=== PATIENT | female | born 1995 | race Caucasian/White ===

== ENCOUNTER 2023-02-21 21:27 | Inpatient (IN) | payer OTHER ==
[~2023-02-21] VITALS: Ht 160 cm; Wt 99.2 kg
[2023-02-21] MEDS ORDERED: NS 1,000 ML IV ONE (21:35)
[2023-02-21 21:52] LABS: BASO # 0.1 10^3/uL (0.0-0.2); BASO % 0.6 % (0.0-1.0); EOS # 0.4 10^3/uL (0.0-0.5); EOS % 2.8 % (0.0-3.0); HEMATOCRIT 40.9 % (36.0-47.0); LYMPH # 3.5 10^3/uL (1.5-5.0); LYMPH % 26.1 % (24.0-44.0); MEAN CORPUSCULAR HEMOGLOBIN 29.9 pg (27.0-33.0); MEAN CORPUSCULAR HGB CONC 34.2 g/dl (32.0-36.5); MEAN CORPUSCULAR VOLUME 87.4 fl (80.0-96.0); MONO # 0.9 10^3/uL (0.0-0.8); MONO % 6.5 % (2.0-8.0); NEUTROPHILS # 8.6 10^3/uL (1.5-8.5); NEUTROPHILS % 63.6 % (36.0-66.0); PLATELET COUNT, AUTOMATED 296 10^3/uL (150-450); RED BLOOD COUNT 4.68 10^6/uL (4.00-5.40); WHITE BLOOD COUNT 13.5 10^3/uL (4.0-10.0)
[2023-02-21 22:04] LABS: INR 0.98; PROTHROMBIN TIME 13.2 SECONDS (12.5-14.5)
[2023-02-21 22:05] LABS: PARTIAL THROMBOPLASTIN TIME 24.1 SECONDS (24.8-34.2)
[2023-02-21 22:15] LABS: CK-MB VALUE MASS 2.5 NG/ML (<3.6); ETHYL ALCOHOL (ETHANOL) < 0.003 % (0.000-0.010); LIPASE 30 U/L (12-53)
[2023-02-21 22:17] LABS: ALKALINE PHOSPHATASE 49 U/L (46-116); ALT/SGPT 22 U/L (7.0-40); AMYLASE 29 U/L (30-118); AST/SGOT 12 U/L (<34); BILIRUBIN,DIRECT 0.2 MG/DL (<0.4); BILIRUBIN,TOTAL 0.7 MG/DL (0.3-1.2); BLOOD UREA NITROGEN 8 MG/DL (9-23); CALCIUM LEVEL 8.7 MG/DL (8.5-10.1); CARBON DIOXIDE LEVEL 19 MMOL/L (20-31); CHLORIDE LEVEL 104 MMOL/L (98-107); CPK CREATINE PHOSPHOKINASE 202 U/L (34-145); CREATININE FOR GFR 0.91 MG/DL (0.55-1.30); GLOMERULAR FILTRATION RATE > 60.0 (>60); GLUCOSE, FASTING 104 MG/DL (60-100); MB/CK RELATIVE INDEX 1.23 (< OR =4); POTASSIUM SERUM 3.4 MMOL/L (3.5-5.1); SODIUM LEVEL 141 MMOL/L (136-145); TOTAL PROTEIN 7.1 G/DL (5.7-8.2)
[2023-02-21] MEDS ORDERED: NS IV ONE (22:25)
[2023-02-21 22:26] LABS: HCG, SERUM QUALITATIVE NEGATIVE (NEGATIVE)
[2023-02-22 02:21] LABS: HEMATOCRIT 38.4 % (36.0-47.0); MEAN CORPUSCULAR HEMOGLOBIN 29.9 pg (27.0-33.0); MEAN CORPUSCULAR HGB CONC 33.9 g/dl (32.0-36.5); MEAN CORPUSCULAR VOLUME 88.3 fl (80.0-96.0); PLATELET COUNT, AUTOMATED 259 10^3/uL (150-450); RED BLOOD COUNT 4.35 10^6/uL (4.00-5.40); WHITE BLOOD COUNT 11.7 10^3/uL (4.0-10.0)
[2023-02-22] MEDS ORDERED: MED REC IN PROGRESS XX SCH (10:40)
[2023-02-22 10:50] LABS: ACETAMINOPHEN LEVEL < 2.0 UG/ML (10.0-20.0); SALICYLATE LEVEL < 3.0 MG/DL (<30)
[2023-02-22 10:53] LABS: THYROID STIMULATING HORMONE 2.769 uIU/ML (0.55-4.78)
[2023-02-22] MEDS ORDERED: EPIP0.3I2 IM (11:28)
[2023-02-22] MEDS ORDERED: TEST200I14 IM (11:28)
[2023-02-22] MEDS ORDERED: MECL1TAB31 PO (11:28)
[2023-02-22] MEDS ORDERED: HOME MED LIST COMPLETE! XX SCH (11:30)
[2023-02-22] MEDS ORDERED: NICOTINE 21MG/24HR 1 EA TRANSDERMAL TD ONE (11:55)
[2023-02-22 13:05] LABS: AMPHETAMINES LEVEL URINE NEGATIVE (NEGATIVE); BARBITURATES URINE NEGATIVE (NEGATIVE); BENZODIAZEPINES URINE NEGATIVE (NEGATIVE); COCAINE METABOLITE URINE NEGATIVE (NEGATIVE); METHADONE URINE NEGATIVE (NEGATIVE); OPIATES URINE NEGATIVE (NEGATIVE)
[2023-02-22 13:06] LABS: PHENCYCLIDINE URINE NEGATIVE (NEGATIVE)
[2023-02-22 13:07] LABS: CANNABINOIDS URINE POSITIVE (NEGATIVE)
[2023-02-22 13:14] LABS: APPEARANCE, URINE HAZY (CLEAR); BACTERIA, URINE AUTO NEGATIVE (NEGATIVE); BILIRUBIN, URINE AUTO NEGATIVE (NEGATIVE); BLOOD, URINE BLOOD 2+ (NEGATIVE); COLOR, URINE STRAW (YELLOW); GLUCOSE, URINE (UA) AUTO NEGATIVE (NEGATIVE); KETONE, URINE AUTO TRACE mg/dL (NEGATIVE); LEUKOCYTE ESTERASE, URINE AUTO NEGATIVE (NEGATIVE); MUCUS, URINE SMALL (NEGATIVE); NITRITE, URINE AUTO NEGATIVE (NEGATIVE); PROTEIN, URINE AUTO NEGATIVE (NEGATIVE); RBC, URINE AUTO 1 /HPF (0-3); SPECIFIC GRAVITY URINE AUTO 1.005 (1.002-1.035); SQUAMOUS EPITHELIAL CELL UR AU 5 /HPF (0-6); UROBILINOGEN, URINE AUTO 0.2 mg/dL (0.0-2.0); WBC, URINE AUTO 1 /HPF (0-3)
[2023-02-22] MEDS ORDERED: ONDANSETRON 4MG ORAL DISINTEGRATING TAB PO ONE (18:40)
[2023-02-22] MEDS ORDERED: cloNIDine 0.1MG TABLET PO ONE (18:40)
[2023-02-23] MEDS ORDERED: ACETAMINOPHEN 500 MG TAB PO ONE (08:25)
[2023-02-23] MEDS ORDERED: cloNIDine 0.1MG TABLET PO ONE (08:25)
[2023-02-23] MEDS ORDERED: NICOTINE 21MG/24HR 1 EA TRANSDERMAL TD ONE (08:35)
[2023-02-23] MEDS ORDERED: ONDANSETRON 4MG ORAL DISINTEGRATING TAB PO ONE (09:25)
[2023-02-23] MEDS ORDERED: OMEPRAZOLE 20MG CAP PO ONE (09:25)
[2023-02-23] MEDS ORDERED: LORazepam 1 MG TAB PO STA (14:37)
[2023-02-24] MEDS ORDERED: cloNIDine 0.1MG TABLET PO ONE (08:10)
[2023-02-24] MEDS ORDERED: NICOTINE 21MG/24HR 1 EA TRANSDERMAL TD ONE (10:00)
[2023-02-24] MEDS ORDERED: traZODone 50 MG TAB PO PRN (12:25)
[2023-02-24] MEDS ORDERED: TESTOSTERONE CYPIONATE 200 MG/ML IM SCH (12:25)
[2023-02-24] MEDS ORDERED: MAALOX 30 ML SUSP *UDC PO PRN (12:25)
[2023-02-24] MEDS ORDERED: MOM 30ML SUSPENSION UDC PO PRN (12:25)
[2023-02-24 14:33] VITALS: BP 165/90; TEMP 97.4; O2SAT 97
[2023-02-24] MEDS: diphenhydrAMINE 25MG CAP PO PRN (19:28)
[2023-02-24] MEDS: ACETAMINOPHEN TAB 650MG DOSE (2X325MG) PO PRN (19:30)
[2023-02-24] MEDS ORDERED: RAMELTEON 8 MG TAB (ROZEREM) PO ONE (23:20)
[2023-02-25 06:22] VITALS: BP 127/70; TEMP 97.3; O2SAT 97
[2023-02-25] MEDS: NICOTINE 21MG/24HR 1 EA TRANSDERMAL TD PRN (08:05)
[2023-02-25] MEDS: ACETAMINOPHEN TAB 650MG DOSE (2X325MG) PO PRN ×3 (08:06→21:24)
[2023-02-25 09:20] LABS: BASO # 0.1 10^3/uL (0.0-0.2); BASO % 0.9 % (0.0-1.0); EOS # 0.3 10^3/uL (0.0-0.5); EOS % 3.8 % (0.0-3.0); HEMATOCRIT 40.8 % (36.0-47.0); LYMPH # 2.3 10^3/uL (1.5-5.0); LYMPH % 33.9 % (24.0-44.0); MEAN CORPUSCULAR HEMOGLOBIN 30.1 pg (27.0-33.0); MEAN CORPUSCULAR HGB CONC 34.3 g/dl (32.0-36.5); MEAN CORPUSCULAR VOLUME 87.7 fl (80.0-96.0); MONO # 0.6 10^3/uL (0.0-0.8); MONO % 8.8 % (2.0-8.0); NEUTROPHILS # 3.6 10^3/uL (1.5-8.5); NEUTROPHILS % 52.3 % (36.0-66.0); PLATELET COUNT, AUTOMATED 286 10^3/uL (150-450); RED BLOOD COUNT 4.65 10^6/uL (4.00-5.40); WHITE BLOOD COUNT 6.8 10^3/uL (4.0-10.0)
[2023-02-25 09:39] LABS: ALBUMIN 3.9 G/DL (3.2-5.2); ALKALINE PHOSPHATASE 48 U/L (46-116); ALT/SGPT 19 U/L (7.0-40); AST/SGOT < 8 U/L (<34); BILIRUBIN,TOTAL 0.5 MG/DL (0.3-1.2); BLOOD UREA NITROGEN 10 MG/DL (9-23); CARBON DIOXIDE LEVEL 23 MMOL/L (20-31); CHLORIDE LEVEL 104 MMOL/L (98-107); CREATININE FOR GFR 0.72 MG/DL (0.55-1.30); GLOMERULAR FILTRATION RATE > 60.0 (>60); GLUCOSE, FASTING 108 MG/DL (60-100); MAGNESIUM LEVEL 1.4 MG/DL (1.8-2.4); POTASSIUM SERUM 3.8 MMOL/L (3.5-5.1); SODIUM LEVEL 137 MMOL/L (136-145); TOTAL PROTEIN 6.9 G/DL (5.7-8.2)
[2023-02-25] MEDS ORDERED: PILL CUTTER 1 EACH XX PRN (10:00)
[2023-02-25] MEDS: LIDOCAINE 5% (LIDODERM) PATCH TD SCH (10:10)
[2023-02-25] MEDS: diphenhydrAMINE 25MG CAP PO PRN ×2 (13:52→21:23)
[2023-02-25 17:20] VITALS: BP 156/100; TEMP 97.3; O2SAT 99
[2023-02-25] MEDS: hydrOXYzine 50 MG TAB PO SCH (20:16)
[2023-02-25] MEDS: BREXPIPRAZOLE 2MG TABLET (REXULTI) PO SCH (20:16)
[2023-02-26 06:04] VITALS: BP 146/76; TEMP 98; O2SAT 95
[2023-02-26] MEDS ORDERED: HYDR50TA70 PO (07:25)
[2023-02-26] MEDS ORDERED: CLONI1TA PO (07:25)
[2023-02-26] MEDS ORDERED: REXU1TAB5 PO (07:25)
[2023-02-26] MEDS ORDERED: BRIN1TAB3 PO (07:25)
[2023-02-26] MEDS ORDERED: MED REC COMMENT (07:28)
[2023-02-26] MEDS: MAGNESIUM OXIDE 400MG TAB (MAG-OX) PO SCH ×3 (08:25→20:23)
[2023-02-26] MEDS: LIDOCAINE 5% (LIDODERM) PATCH TD SCH (08:26)
[2023-02-26] MEDS: NICOTINE 21MG/24HR 1 EA TRANSDERMAL TD PRN (08:26)
[2023-02-26] MEDS ORDERED: TRINTELLIX 20 MG PO SCH (09:00)
[2023-02-26] MEDS: ESCITALOPRAM OXALATE 5MG TABLET (LEXAPRO) PO SCH (11:18)
[2023-02-26] MEDS: diphenhydrAMINE 25MG CAP PO PRN (16:05)
[2023-02-26] MEDS: ACETAMINOPHEN TAB 650MG DOSE (2X325MG) PO PRN ×2 (16:06→23:11)
[2023-02-26 16:16] VITALS: BP 142/90; TEMP 97.5; O2SAT 95
[2023-02-26] MEDS: BREXPIPRAZOLE 2MG TABLET (REXULTI) PO SCH (20:23)
[2023-02-26] MEDS: hydrOXYzine 50 MG TAB PO SCH (20:23)
[2023-02-27 06:30] VITALS: BP 137/80; TEMP 97.3; O2SAT 97
[2023-02-27] MEDS: ESCITALOPRAM OXALATE 5MG TABLET (LEXAPRO) PO SCH (09:56)
[2023-02-27] MEDS: MAGNESIUM OXIDE 400MG TAB (MAG-OX) PO SCH ×3 (09:56→21:08)
[2023-02-27] MEDS: LIDOCAINE 5% (LIDODERM) PATCH TD SCH (09:57)
[2023-02-27] MEDS: ACETAMINOPHEN TAB 650MG DOSE (2X325MG) PO PRN ×2 (09:58→23:56)
[2023-02-27] MEDS: NICOTINE 21MG/24HR 1 EA TRANSDERMAL TD PRN (10:04)
[2023-02-27] MEDS: GABAPENTIN 300 MG CAP PO SCH ×2 (12:36→21:08)
[2023-02-27] MEDS: diazePAM 2 MG TAB PO PRN (12:37)
[2023-02-27 16:06] VITALS: BP 158/92; TEMP 97.8; O2SAT 96
[2023-02-27] MEDS: hydrOXYzine 50 MG TAB PO SCH (21:07)
[2023-02-27] MEDS: RAMELTEON 8 MG TAB (ROZEREM) PO SCH (21:07)
[2023-02-27] MEDS: BREXPIPRAZOLE 2MG TABLET (REXULTI) PO SCH (21:07)
[2023-02-27] MEDS: PRAZOSIN 1 MG CAP PO SCH (21:09)
[2023-02-28 06:27] VITALS: BP 117/71; TEMP 97.7; O2SAT 97
[2023-02-28] MEDS: MAGNESIUM OXIDE 400MG TAB (MAG-OX) PO SCH ×3 (08:30→21:20)
[2023-02-28] MEDS: ESCITALOPRAM OXALATE 5MG TABLET (LEXAPRO) PO SCH (08:30)
[2023-02-28] MEDS: LIDOCAINE 5% (LIDODERM) PATCH TD SCH (08:31)
[2023-02-28] MEDS: GABAPENTIN 300 MG CAP PO SCH ×2 (08:31→21:20)
[2023-02-28] MEDS: diazePAM 2 MG TAB PO PRN (13:12)
[2023-02-28] MEDS: ACETAMINOPHEN TAB 650MG DOSE (2X325MG) PO PRN (13:13)
[2023-02-28 16:06] VITALS: BP 131/80; TEMP 97.1; O2SAT 98
[2023-02-28] MEDS: BREXPIPRAZOLE 2MG TABLET (REXULTI) PO SCH (21:19)
[2023-02-28] MEDS: RAMELTEON 8 MG TAB (ROZEREM) PO SCH (21:19)
[2023-02-28] MEDS: hydrOXYzine 50 MG TAB PO SCH (21:19)
[2023-02-28 21:20] VITALS: BP 141/89
[2023-02-28] MEDS: PRAZOSIN 1 MG CAP PO SCH (21:20)
[2023-03-01 06:09] VITALS: BP 123/60; TEMP 98.9; O2SAT 96
[2023-03-01] MEDS ORDERED: HYDR50TA70 PO (10:04)
[2023-03-01] MEDS ORDERED: LIDO5TD TD (10:04)
[2023-03-01] MEDS ORDERED: MINI1CAP PO (10:04)
[2023-03-01] MEDS: ESCITALOPRAM OXALATE 5MG TABLET (LEXAPRO) PO SCH (10:04)
[2023-03-01] MEDS ORDERED: LEXA5TAB13 PO (10:04)
[2023-03-01] MEDS ORDERED: RAME8TAB2 PO (10:04)
[2023-03-01] MEDS ORDERED: NICO21PAT TD (10:04)
[2023-03-01] MEDS ORDERED: GABA-282 PO (10:04)
[2023-03-01] MEDS ORDERED: MAGN400T2 PO (10:04)
[2023-03-01] MEDS ORDERED: REXU1TAB5 PO (10:04)
[2023-03-01] MEDS: MAGNESIUM OXIDE 400MG TAB (MAG-OX) PO SCH (10:05)
[2023-03-01] MEDS: NICOTINE 21MG/24HR 1 EA TRANSDERMAL TD PRN (10:05)
[2023-03-01] MEDS: GABAPENTIN 300 MG CAP PO SCH (10:05)
[2023-03-01] MEDS: LIDOCAINE 5% (LIDODERM) PATCH TD SCH (10:06)
[2023-03-01] MEDS: diphenhydrAMINE 25MG CAP PO PRN (11:08)
[2023-03-01] MEDS: ACETAMINOPHEN TAB 650MG DOSE (2X325MG) PO PRN (11:09)
[2023-03-01] MEDS: diazePAM 2 MG TAB PO PRN (13:44)
[2023-03-01 13:50] VITALS: BP 142/94; TEMP 98; O2SAT 97
== END 2023-03-01 15:56 | disposition home or self-care (01) | DRG 753 ==
LOC: EDBD 21:27 → M ED 21:27 → M ED INP 02-24 12:25 → M PSY 02-24 14:32
PROVIDERS: ADMIT Student in an Organized Health Care Education/Training Program; ATTEND Student in an Organized Health Care Education/Training Program
DX: F31.9 Bipolar disorder, unspecified (principal); E11.10 Type 2 diabetes mellitus with ketoacidosis without coma; E83.42 Hypomagnesemia; F43.10 Post-traumatic stress disorder, unspecified; F60.3 Borderline personality disorder; F17.210 Nicotine dependence, cigarettes, uncomplicated; F12.10 Cannabis abuse, uncomplicated; E73.9 Lactose intolerance, unspecified; J45.909 Unspecified asthma, uncomplicated; E03.9 Hypothyroidism, unspecified; G89.29 Other chronic pain; M25.511 Pain in right shoulder; F64.0 Transsexualism; Z59.02 Unsheltered homelessness; Z56.0 Unemployment, unspecified; Z91.410 Personal history of adult physical and sexual abuse; Z62.810 Personal history of physical and sexual abuse in childhood; Z88.6 Allergy status to analgesic agent; Z79.899 Other long term (current) drug therapy; Z88.8 Allergy status to other drugs, medicaments and biological substances; Z91.030 Bee allergy status

== ENCOUNTER → 2024-01-19 | Outpatient (CLI) | payer OTHER ==
[~2024-01-19] MED LIST: BRIN1TAB3 PO; CLONI1TA PO; EPIP0.3I2 IM; GABA-282 PO; HYDR50TA70 PO; LEXA5TAB13 PO; LIDO5TD TD; MAGN400T2 PO; MECL-209 PO; MED REC COMMENT; MINI1CAP PO; NICO21PAT TD; RAME8TAB2 PO; REXU1TAB5 PO; TEST200I14 IM
[2024-01-19 17:29] LABS: HEMATOCRIT 43.2 % (36.0-47.0); HEMOGLOBIN 14.8 g/dl (12.0-15.5); MEAN CORPUSCULAR HEMOGLOBIN 30.9 pg (27.0-33.0); MEAN CORPUSCULAR HGB CONC 34.3 g/dl (32.0-36.5); MEAN CORPUSCULAR VOLUME 90.2 fl (80.0-96.0); PLATELET COUNT, AUTOMATED 280 10^3/uL (150-450); RED BLOOD COUNT 4.79 10^6/uL (4.00-5.40); WHITE BLOOD COUNT 9.4 10^3/uL (4.0-10.0)
[2024-01-19 17:48] LABS: HEMOGLOBIN A1c 5.1 % (4.0-6.0)
[2024-01-19 17:57] LABS: ALBUMIN 4.1 G/DL (3.2-5.2); ALKALINE PHOSPHATASE 51 U/L (46-116); ALT/SGPT 30 U/L (7.0-40); AST/SGOT 14 U/L (<34); BILIRUBIN,TOTAL 0.4 MG/DL (0.3-1.2); BLOOD UREA NITROGEN 10 MG/DL (9-23); CARBON DIOXIDE LEVEL 24 MMOL/L (20-31); CHLORIDE LEVEL 106 MMOL/L (98-107); CREATININE FOR GFR 0.82 MG/DL (0.55-1.30); GLOMERULAR FILTRATION RATE > 60.0 (>60); GLUCOSE, FASTING 99 MG/DL (60-100); POTASSIUM SERUM 4.1 MMOL/L (3.5-5.1); SODIUM LEVEL 135 MMOL/L (136-145); THYROID STIMULATING HORMONE 1.469 uIU/ML (0.55-4.78)
[2024-01-19 17:58] LABS: VITAMIN B12 LEVEL 388 PG/ML (211-911)
[2024-01-19 18:07] LABS: MAU/CREAT RATIO 2.6 MCG/MG (0.0-30.0)
== END ==
LOC: M PLALAB 14:31
PROVIDERS: ATTEND Family Medicine
DX: E11.9 Type 2 diabetes mellitus without complications (principal); E03.9 Hypothyroidism, unspecified; R53.83 Other fatigue; N94.6 Dysmenorrhea, unspecified

== ENCOUNTER → 2024-04-14 | Outpatient (CLI) | payer OTHER | LOC: M WHC 11:16 | PROVIDERS: ATTEND Family Medicine | DX: R10.2 Pelvic and perineal pain (principal) ==

== ENCOUNTER → 2024-05-23 | Outpatient (CLI) | payer OTHER ==
[~2024-05-23] MED LIST changes: +GABA-1172 PO; -GABA-282 PO
[2024-05-23 13:30] LABS: FREE T4 0.92 NG/DL (0.89-1.76); THYROID STIMULATING HORMONE 1.24 uIU/ML (0.55-4.78)
== END ==
LOC: M PLALAB 11:34
PROVIDERS: ATTEND Family Medicine
DX: E11.9 Type 2 diabetes mellitus without complications (principal); E03.9 Hypothyroidism, unspecified

== ENCOUNTER 2024-06-17 22:39 | Emergency (ER) | payer OTHER ==
[~2024-06-17] VITALS: Ht 160 cm; Wt 107.0 kg
[2024-06-17] MEDS ORDERED: OMEP10CASR PO (22:57)
[2024-06-17] MEDS ORDERED: ADV100INH INH (22:57)
[2024-06-17] MEDS ORDERED: CETI-24 PO (22:57)
[2024-06-17] MEDS ORDERED: CLON0.5T2 PO (22:57)
[2024-06-17] MEDS ORDERED: AMPH1CAP16 PO (22:57)
[2024-06-17 23:03] VITALS: TEMP 97.4
[2024-06-17 23:22] LABS: BASO # 0.1 10^3/uL (0.0-0.2); BASO % 0.8 % (0.0-1.0); EOS # 0.3 10^3/uL (0.0-0.5); EOS % 2.7 % (0.0-3.0); HEMATOCRIT 47.9 % (36.0-47.0); HEMOGLOBIN 16.8 g/dl (12.0-15.5); LYMPH # 3.2 10^3/uL (1.5-5.0); LYMPH % 28.2 % (24.0-44.0); MEAN CORPUSCULAR HGB CONC 35.1 g/dl (32.0-36.5); MEAN CORPUSCULAR VOLUME 88.4 fl (80.0-96.0); NEUTROPHILS # 6.6 10^3/uL (1.5-8.5); NEUTROPHILS % 58.9 % (36.0-66.0); PLATELET COUNT, AUTOMATED 299 10^3/uL (150-450); RED BLOOD COUNT 5.42 10^6/uL (4.00-5.40); WHITE BLOOD COUNT 11.2 10^3/uL (4.0-10.0)
[2024-06-17 23:54] LABS: BLOOD UREA NITROGEN 11 MG/DL (9-23); CALCIUM LEVEL 9.7 MG/DL (8.5-10.1); CARBON DIOXIDE LEVEL 26 MMOL/L (20-31); CHLORIDE LEVEL 102 MMOL/L (98-107); CK-MB VALUE MASS 2.8 NG/ML (<3.6); CREATININE FOR GFR 0.97 MG/DL (0.55-1.30); GLOMERULAR FILTRATION RATE > 60.0 (>60); GLUCOSE, FASTING 102 MG/DL (60-100); POTASSIUM SERUM 4.3 MMOL/L (3.5-5.1); SODIUM LEVEL 136 MMOL/L (136-145)
[2024-06-17 23:56] LABS: THYROID STIMULATING HORMONE 1.384 uIU/ML (0.55-4.78)
[2024-06-17 23:58] LABS: CPK CREATINE PHOSPHOKINASE 457 U/L (34-145); MB/CK RELATIVE INDEX 0.61 (< OR =4)
[2024-06-18 00:55] LABS: CK-MB VALUE MASS 2.5 NG/ML (<3.6); MB/CK RELATIVE INDEX 0.57 (< OR =4)
[2024-06-18] MEDS: ONDANSETRON 4MG 2ML VIAL IV ONE (01:00)
[2024-06-18 03:00] VITALS: BP 121/75; O2SAT 95
== END 2024-06-18 03:22 | disposition home or self-care (01) ==
LOC: EDBD 22:39 → M ED 22:39
DX: R56.9 Unspecified convulsions (principal); E73.9 Lactose intolerance, unspecified; F31.9 Bipolar disorder, unspecified; F43.10 Post-traumatic stress disorder, unspecified; F90.9 Attention-deficit hyperactivity disorder, unspecified type; F32.A Depression, unspecified; Z79.890 Hormone replacement therapy; Z88.6 Allergy status to analgesic agent; Z91.030 Bee allergy status
CPT/HCPCS: 70450; 71045; 72125; 80048; 82140; 82550; 82553; 83605; 83735; 84146; 84443; 84484; 85025; 93005; 93041; 94760; 96374; 99285; J2405

== ENCOUNTER 2024-07-26 15:30 | Emergency (ER) | payer OTHER ==
[~2024-07-26] VITALS: Ht 157.5 cm; Wt 105.3 kg
[~2024-07-26 15:30] MED LIST changes: +ADVA1AER8 INH; +AMPH1CAP16 PO; +CETI-24 PO; +CLON0.5T2 PO; +OMEP10CASR PO
[2024-07-26 15:38] VITALS: BP 152/84; TEMP 99.4; O2SAT 97
== END 2024-07-26 19:21 | disposition left against medical advice (07) ==
LOC: M ED 15:30
DX: Z53.21 Procedure and treatment not carried out due to patient leaving prior to being seen by health care provider (principal)

== ENCOUNTER 2024-07-31 20:39 | Emergency (ER) | payer OTHER ==
[~2024-07-31] VITALS: Ht 160 cm; Wt 105.0 kg
[2024-07-31 20:47] VITALS: TEMP 97
[2024-08-01 02:15] VITALS: BP 175/106
[2024-08-01 04:01] VITALS: O2SAT 96
[2024-08-01 04:12] VITALS: BP 140/82
[2024-08-01] MEDS ORDERED: AMLO25TA PO (04:14)
== END 2024-08-01 04:22 | disposition home or self-care (01) ==
LOC: M ED 20:39
DX: I10 Essential (primary) hypertension (principal); K21.9 Gastro-esophageal reflux disease without esophagitis; J45.909 Unspecified asthma, uncomplicated; F90.9 Attention-deficit hyperactivity disorder, unspecified type; F32.A Depression, unspecified; G40.909 Epilepsy, unspecified, not intractable, without status epilepticus; F17.200 Nicotine dependence, unspecified, uncomplicated; Z91.030 Bee allergy status; Z88.6 Allergy status to analgesic agent; Z91.011 Allergy to milk products; Z79.899 Other long term (current) drug therapy

== ENCOUNTER 2024-08-01 13:34 | Emergency (ER) | payer OTHER ==
[~2024-08-01 13:34] MED LIST changes: +AMLO25TA PO
[2024-08-01 15:08] LABS: BASO # 0.1 10^3/uL (0.0-0.2); BASO % 0.8 % (0.0-1.0); EOS # 0.2 10^3/uL (0.0-0.5); HEMATOCRIT 45.5 % (36.0-47.0); HEMOGLOBIN 15.4 g/dl (12.0-15.5); LYMPH # 2.1 10^3/uL (1.5-5.0); MEAN CORPUSCULAR HEMOGLOBIN 30.3 pg (27.0-33.0); MEAN CORPUSCULAR HGB CONC 33.8 g/dl (32.0-36.5); MEAN CORPUSCULAR VOLUME 89.4 fl (80.0-96.0); MONO # 0.5 10^3/uL (0.0-0.8); MONO % 6.5 % (2.0-8.0); NEUTROPHILS # 4.8 10^3/uL (1.5-8.5); NEUTROPHILS % 62.4 % (36.0-66.0); PLATELET COUNT, AUTOMATED 265 10^3/uL (150-450); RED BLOOD COUNT 5.09 10^6/uL (4.00-5.40); WHITE BLOOD COUNT 7.7 10^3/uL (4.0-10.0)
[2024-08-01 15:35] LABS: BLOOD UREA NITROGEN 15 MG/DL (9-23); CALCIUM LEVEL 9.6 MG/DL (8.5-10.1); CARBON DIOXIDE LEVEL 24 MMOL/L (20-31); CHLORIDE LEVEL 103 MMOL/L (98-107); CK-MB VALUE MASS 1.5 NG/ML (<3.6); CREATININE FOR GFR 0.73 MG/DL (0.55-1.30); GLOMERULAR FILTRATION RATE > 60.0 (>60); GLUCOSE, FASTING 148 MG/DL (60-100); MAGNESIUM LEVEL 1.7 MG/DL (1.8-2.4); POTASSIUM SERUM 4.1 MMOL/L (3.5-5.1); SODIUM LEVEL 137 MMOL/L (136-145)
[2024-08-01 15:42] LABS: CPK CREATINE PHOSPHOKINASE 305 U/L (34-145); HCG, SERUM QUALITATIVE NEGATIVE (NEGATIVE); MB/CK RELATIVE INDEX 0.49 (< OR =4)
[2024-08-01] MEDS ORDERED: ISOVUE-370 76% 100ML VIAL As Ordered ONE (16:13)
[2024-08-01 16:16] VITALS: BP 152/91
[2024-08-01] MEDS: amLODIPine 5 MG TAB PO ONE (16:16)
[2024-08-01 17:00] VITALS: BP 146/98; O2SAT 97
[2024-08-01 17:15] VITALS: TEMP 98.1
== END 2024-08-01 17:18 | disposition home or self-care (01) ==
LOC: EDSEX 13:34 → M ED 13:34 → EDBD 13:34 → M ED 17:18
DX: I10 Essential (primary) hypertension (principal); R55 Syncope and collapse; E11.9 Type 2 diabetes mellitus without complications; G40.909 Epilepsy, unspecified, not intractable, without status epilepticus; K21.9 Gastro-esophageal reflux disease without esophagitis; J45.909 Unspecified asthma, uncomplicated; E03.9 Hypothyroidism, unspecified; F31.9 Bipolar disorder, unspecified; N40.0 Benign prostatic hyperplasia without lower urinary tract symptoms; F43.10 Post-traumatic stress disorder, unspecified; E73.9 Lactose intolerance, unspecified; F90.9 Attention-deficit hyperactivity disorder, unspecified type; Z79.899 Other long term (current) drug therapy; Z79.890 Hormone replacement therapy; Z91.030 Bee allergy status; Z88.6 Allergy status to analgesic agent
CPT/HCPCS: 71275; 80048; 82550; 82553; 83735; 84484; 84703; 85025; 93005; 99284; Q9967

== ENCOUNTER 2024-11-06 20:34 | Emergency (ER) | payer OTHER ==
[~2024-11-06] VITALS: Ht 154.9 cm; Wt 111.4 kg
[2024-11-07] MEDS: IPRATROPIUM 0.5MG/ALBUTEROL 2.5MG INH SOL UD 3ML NEB ONE (01:30)
[2024-11-07] MEDS: ACETAMINOPHEN 500 MG TAB PO ONE (01:46)
[2024-11-07] MEDS ORDERED: BENZ200C70 PO (01:51)
[2024-11-07 02:07] VITALS: BP 118/63; TEMP 97.6; O2SAT 98
== END 2024-11-07 02:35 | disposition home or self-care (01) ==
LOC: M ED 20:34
DX: J09.X2 Influenza due to identified novel influenza A virus with other respiratory manifestations (principal); J45.909 Unspecified asthma, uncomplicated; I10 Essential (primary) hypertension; F17.290 Nicotine dependence, other tobacco product, uncomplicated; Z88.6 Allergy status to analgesic agent; Z88.8 Allergy status to other drugs, medicaments and biological substances; Z79.899 Other long term (current) drug therapy

== ENCOUNTER → 2024-11-15 | Outpatient (REF) ==
[~2024-11-15] MED LIST changes: +BENZ200C70 PO
== END ==
LOC: M PLAIMG 14:22
PROVIDERS: ATTEND Internal Medicine
DX: M54.50 Low back pain, unspecified (principal)

== ENCOUNTER 2025-02-10 18:35 | Emergency (ER) | payer OTHER ==
[~2025-02-10] VITALS: Ht 160 cm; Wt 102.6 kg
[2025-02-10 18:39] VITALS: BP 117/74; TEMP 98.3; O2SAT 97
== END 2025-02-10 19:52 | disposition left against medical advice (07) ==
LOC: M ED 18:35
DX: Z53.21 Procedure and treatment not carried out due to patient leaving prior to being seen by health care provider (principal)

== ENCOUNTER 2025-03-06 20:52 | Emergency (ER) | payer OTHER ==
[~2025-03-06] VITALS: Ht 160 cm; Wt 98.6 kg
[2025-03-06 22:37] LABS: BASO # 0.1 10^3/uL (0.0-0.2); BASO % 0.7 % (0.0-1.0); EOS # 0.1 10^3/uL (0.0-0.5); EOS % 0.8 % (0.0-3.0); LYMPH # 3.1 10^3/uL (1.5-5.0); LYMPH % 28.0 % (24.0-44.0); MONO # 0.9 10^3/uL (0.0-0.8); MONO % 8.4 % (2.0-8.0); NEUTROPHILS # 6.9 10^3/uL (1.5-8.5); NEUTROPHILS % 61.7 % (36.0-66.0); PLATELET COUNT, AUTOMATED 308 10^3/uL (150-450)
[2025-03-06 22:52] LABS: ALT/SGPT 31.0 U/L (7.0-40); AST/SGOT 24.0 U/L (<34); CALCIUM LEVEL 9.5 MG/DL (8.5-10.1); CARBON DIOXIDE LEVEL 24.0 MMOL/L (20-31); CHLORIDE LEVEL 101.0 MMOL/L (98-107); CREATININE FOR GFR 1.0 MG/DL (0.55-1.30); GLOMERULAR FILTRATION RATE 77.2 (>60); POTASSIUM SERUM 3.5 MMOL/L (3.5-5.1); SODIUM LEVEL 137.0 MMOL/L (136-145)
[2025-03-07 01:15] LABS: KETONE, URINE AUTO RFX NEGATIVE (NEGATIVE); LEUKOCYTE ESTERASE UR AUTO RFX NEGATIVE (NEGATIVE); MUCUS, URINE RFX SMALL (NEGATIVE); NITRITE, URINE AUTO RFX NEGATIVE (NEGATIVE); RBC, URINE AUTO RFX 0 /HPF (0-3); SQUAM EPITHELIAL CELL UR AURFX 2 /HPF (0-6); WBC, URINE AUTO RFX 2 /HPF (0-3)
[2025-03-07 03:08] LABS: CPK CREATINE PHOSPHOKINASE 194.0 U/L (34-145)
[2025-03-07 04:59] LABS: CK-MB VALUE MASS 3.0 NG/ML (<3.6); MAGNESIUM LEVEL 1.6 MG/DL (1.8-2.4)
[2025-03-07 05:01] LABS: CPK CREATINE PHOSPHOKINASE 174 U/L (34-145); MB/CK RELATIVE INDEX 1.72 (< OR =4)
[2025-03-07 08:16] VITALS: BP 144/99; TEMP 97; O2SAT 98
== END 2025-03-07 08:17 | disposition home or self-care (01) ==
LOC: M ED 20:52
DX: R42 Dizziness and giddiness (principal); E11.9 Type 2 diabetes mellitus without complications; K21.9 Gastro-esophageal reflux disease without esophagitis; J45.909 Unspecified asthma, uncomplicated; R56.9 Unspecified convulsions; Z79.899 Other long term (current) drug therapy; Z79.890 Hormone replacement therapy; Z88.6 Allergy status to analgesic agent; Z88.8 Allergy status to other drugs, medicaments and biological substances; Z91.030 Bee allergy status

== ENCOUNTER → 2025-04-20 | Outpatient (CLI) | payer OTHER | LOC: M PLALAB 12:29 | PROVIDERS: ATTEND Family Medicine | DX: M25.512 Pain in left shoulder (principal); M25.561 Pain in right knee ==

== ENCOUNTER 2025-05-08 11:13 | Inpatient (IN) | payer OTHER ==
[2025-05-07] MEDS: TESTOSTERONE CYPIONATE 200 MG/ML IM SCH (09:00)
[~2025-05-08] VITALS: Ht 157.5 cm; Wt 98.7 kg
[2025-05-08 12:04] LABS: PLATELET COUNT, AUTOMATED 298 10^3/uL (150-450)
[2025-05-08 12:27] LABS: BARBITURATES URINE NEGATIVE (NEGATIVE); BENZODIAZEPINES URINE NEGATIVE (NEGATIVE); COCAINE METABOLITE URINE NEGATIVE (NEGATIVE); METHADONE URINE NEGATIVE (NEGATIVE); OPIATES URINE NEGATIVE (NEGATIVE); PHENCYCLIDINE URINE NEGATIVE (NEGATIVE)
[2025-05-08 12:28] LABS: AMPHETAMINES LEVEL URINE POSITIVE (NEGATIVE); CANNABINOIDS URINE POSITIVE (NEGATIVE)
[2025-05-08 12:29] LABS: ETHYL ALCOHOL (ETHANOL) < 0.003 % (0.000-0.010)
[2025-05-08 12:31] LABS: ALT/SGPT 22 U/L (7.0-40); AST/SGOT 23 U/L (<34); CALCIUM LEVEL 9.0 MG/DL (8.5-10.1); CARBON DIOXIDE LEVEL 24 MMOL/L (20-31); CHLORIDE LEVEL 104 MMOL/L (98-107); CREATININE FOR GFR 0.99 MG/DL (0.55-1.30); GLOMERULAR FILTRATION RATE 78.2 (>60); POTASSIUM SERUM 4.1 MMOL/L (3.5-5.1); SALICYLATE LEVEL < 3.0 MG/DL (<30); SODIUM LEVEL 138 MMOL/L (136-145)
[2025-05-08 12:59] LABS: HCG, SERUM QUALITATIVE NEGATIVE (NEGATIVE)
[2025-05-08] MEDS ORDERED: VILO100C PO (13:31)
[2025-05-08] MEDS ORDERED: REXU1TAB6 PO (13:31)
[2025-05-08] MEDS ORDERED: GUAN1TAB16 PO (13:31)
[2025-05-08] MEDS ORDERED: LEXA1TAB2 PO (13:31)
[2025-05-08] MEDS ORDERED: DICL100G10 TOP (14:32)
[2025-05-08] MEDS ORDERED: AMLO2.5T3 PO (14:32)
[2025-05-08] MEDS ORDERED: HOME MED LIST COMPLETE! XX SCH (14:35)
[2025-05-08] MEDS ORDERED: MAALOX 30 ML SUSP *UDC PO PRN (14:50)
[2025-05-08] MEDS: clonazePAM 0.5 MG TAB PO PRN (17:17)
[2025-05-08] MEDS: NICOTINE 14 MG/24 HR TRANSDERMAL TD SCH (17:20)
[2025-05-08] MEDS: HALOPERIDOL 5 MG TAB PO PRN (20:29)
[2025-05-08] MEDS: ACETAMINOPHEN 325 MG TAB PO PRN (20:30)
[2025-05-08] MEDS: LORazepam 1 MG TAB PO PRN (23:26)
[2025-05-09] MEDS: DICLOFENAC EPOLAMINE 1.3% PATCH TOP SCH (09:00)
[2025-05-09 09:16] VITALS: BP 132/90
[2025-05-09] MEDS: ESCITALOPRAM OXALATE 10 MG TABLET PO SCH (09:19)
[2025-05-09] MEDS: NICOTINE 21 MG/24 HR 1 EA TRANSDERMAL TD SCH (10:34)
[2025-05-09] MEDS ORDERED: LORazepam 0.5 MG TAB PO PRN (13:30)
[2025-05-09 15:52] VITALS: BP 127/83; TEMP 97.3; O2SAT 98
[2025-05-09] MEDS: LIDOCAINE 5% OINT 30 GM TUBE TOP SCH (17:00)
[2025-05-09] MEDS: LURASIDONE HCL 20 MG TAB PO SCH (18:09)
[2025-05-10 06:43] VITALS: BP 142/83; TEMP 97.8; O2SAT 98
[2025-05-10] MEDS: DEXTROAMPHETAMINE/AMPHETAMINE 5 MG *ER* CAPSULE PO SCH (08:14)
[2025-05-10 10:06] VITALS: BP 150/98; TEMP 97.5; O2SAT 91
[2025-05-10] MEDS: OLANZapine 5 MG TAB PO PRN (13:26)
[2025-05-10 13:45] VITALS: BP 148/80
[2025-05-10] MEDS: clonazePAM 0.5 MG TAB PO PRN (15:33)
[2025-05-10 16:14] VITALS: BP 148/86; TEMP 97.1; O2SAT 98
[2025-05-10] MEDS: MOM 30 ML SUSPENSION UDC PO PRN (20:10)
[2025-05-10] MEDS: CALAMINE LOTION 177 ML BTL TOP PRN (21:50)
[2025-05-10] MEDS: traZODone 50 MG TAB PO PRN (21:50)
[2025-05-11 06:37] VITALS: BP 154/82; TEMP 97.6; O2SAT 98
[2025-05-11 14:29] VITALS: BP 141/86; TEMP 97.4; O2SAT 99
[2025-05-12 06:20] VITALS: BP 148/90; TEMP 98.1; O2SAT 96
[2025-05-12 14:59] VITALS: BP 143/94; TEMP 97.5; O2SAT 96
[2025-05-13 06:34] VITALS: BP 127/82; TEMP 97.1; O2SAT 98
[2025-05-13 14:44] VITALS: BP 134/80; TEMP 97.7; O2SAT 96
[2025-05-14] MEDS ORDERED: TRAZ-252 PO (01:13)
[2025-05-14] MEDS ORDERED: LATU20TA PO (01:13)
[2025-05-14 06:53] VITALS: BP 124/96; TEMP 97.1; O2SAT 96
[2025-05-14 08:21] VITALS: BP 141/83
[2025-05-14 08:22] VITALS: BP 141/83
== END 2025-05-14 12:09 | disposition home or self-care (01) | DRG 753 ==
LOC: M ED 11:13 → M ED INP 14:49 → M PSY 16:00
PROVIDERS: ADMIT Internal Medicine; ATTEND Internal Medicine
DX: F31.32 Bipolar disorder, current episode depressed, moderate (principal); F41.1 Generalized anxiety disorder; F41.0 Panic disorder [episodic paroxysmal anxiety]; F60.3 Borderline personality disorder; F43.10 Post-traumatic stress disorder, unspecified; F90.9 Attention-deficit hyperactivity disorder, unspecified type; F12.20 Cannabis dependence, uncomplicated; R45.851 Suicidal ideations; G47.00 Insomnia, unspecified; F64.0 Transsexualism; F17.200 Nicotine dependence, unspecified, uncomplicated; Z91.51 Personal history of suicidal behavior; M25.561 Pain in right knee; M25.512 Pain in left shoulder; E66.812 Obesity, class 2; Z62.810 Personal history of physical and sexual abuse in childhood; Z79.890 Hormone replacement therapy; Z79.899 Other long term (current) drug therapy; Z91.030 Bee allergy status; Z91.0110 Allergy to milk products, unspecified; Z88.6 Allergy status to analgesic agent; Z88.8 Allergy status to other drugs, medicaments and biological substances; Z56.0 Unemployment, unspecified

== ENCOUNTER 2025-06-15 22:43 | Emergency (ER) | payer OTHER ==
[~2025-06-15] VITALS: Ht 157.5 cm; Wt 101.3 kg
[~2025-06-15 22:43] MED LIST changes: +AMLO2.5T3 PO; +DICL100G10 TOP; +GUAN1TAB16 PO; +LATU20TA PO; +LEXA1TAB2 PO; +REXU1TAB6 PO; +TRAZ-252 PO; +VILO100C PO
[2025-06-15 22:46] VITALS: TEMP 98.2
[2025-06-16 00:16] LABS: BASO # 0.1 10^3/uL (0.0-0.2); BASO % 0.8 % (0.0-1.0); EOS # 0.8 10^3/uL (0.0-0.5); EOS % 8.4 % (0.0-3.0); LYMPH # 3.4 10^3/uL (1.5-5.0); LYMPH % 36.8 % (24.0-44.0); MONO # 0.6 10^3/uL (0.0-0.8); MONO % 6.8 % (2.0-8.0); NEUTROPHILS # 4.3 10^3/uL (1.5-8.5); NEUTROPHILS % 47.0 % (36.0-66.0); PLATELET COUNT, AUTOMATED 228 10^3/uL (150-450)
[2025-06-16 00:47] LABS: HCG, SERUM QUALITATIVE NEGATIVE (NEGATIVE)
[2025-06-16 01:05] VITALS: BP 129/86; O2SAT 98
[2025-06-16 01:13] LABS: APPEARANCE, URINE CLEAR (CLEAR); BACTERIA, URINE AUTO NEGATIVE (NEGATIVE); BILIRUBIN, URINE AUTO NEGATIVE (NEGATIVE); BLOOD, URINE BLOOD NEGATIVE (NEGATIVE); GLUCOSE, URINE (UA) AUTO NEGATIVE (NEGATIVE); KETONE, URINE AUTO NEGATIVE (NEGATIVE); LEUKOCYTE ESTERASE, URINE AUTO NEGATIVE (NEGATIVE); MUCUS, URINE SMALL (NEGATIVE); NITRITE, URINE AUTO NEGATIVE (NEGATIVE); PROTEIN, URINE AUTO NEGATIVE (NEGATIVE); RBC, URINE AUTO 0 /HPF (0-3); SPECIFIC GRAVITY URINE AUTO 1.015 (1.002-1.035); SQUAMOUS EPITHELIAL CELL UR AU 1 /HPF (0-6); UROBILINOGEN, URINE AUTO 0.2 mg/dL (0.0-2.0); WBC, URINE AUTO 1 /HPF (0-3)
== END 2025-06-16 04:00 | disposition left against medical advice (07) ==
LOC: M ED 22:43
DX: Z53.21 Procedure and treatment not carried out due to patient leaving prior to being seen by health care provider (principal)

== ENCOUNTER 2025-06-20 17:35 | Emergency (ER) | payer OTHER ==
[~2025-06-20] VITALS: Ht 160 cm; Wt 104.3 kg
[2025-06-20 17:42] VITALS: TEMP 96.6
[2025-06-20 18:47] VITALS: BP_DIAS 87
[2025-06-20] MEDS: ACETAMINOPHEN *IV* 1,000 MG in IV 1 EA IV ONE (20:12)
[2025-06-20] MEDS: KETOROLAC 30 MG/ML 1 ML VIAL IV ONE (20:13)
[2025-06-20 20:45] VITALS: BP_SYST 124; O2SAT 99
== END 2025-06-20 20:45 | disposition home or self-care (01) ==
LOC: EDSEX → EDBD 17:35 → M ED 17:35
DX: Z04.3 Encounter for examination and observation following other accident (principal); V03.10XA Pedestrian on foot injured in collision with car, pick-up truck or van in traffic accident, initial encounter; Y92.410 Unspecified street and highway as the place of occurrence of the external cause; Y93.89 Activity, other specified; Y99.9 Unspecified external cause status; E11.9 Type 2 diabetes mellitus without complications; J45.909 Unspecified asthma, uncomplicated; K21.9 Gastro-esophageal reflux disease without esophagitis; F31.9 Bipolar disorder, unspecified; F60.9 Personality disorder, unspecified; F42.9 Obsessive-compulsive disorder, unspecified; F17.200 Nicotine dependence, unspecified, uncomplicated; F64.0 Transsexualism; Z79.890 Hormone replacement therapy; Z79.899 Other long term (current) drug therapy; Z88.6 Allergy status to analgesic agent; Z91.030 Bee allergy status

== ENCOUNTER 2025-06-20 23:03 | Emergency (ER) | payer OTHER ==
[~2025-06-20] VITALS: Ht 160 cm; Wt 100.2 kg
[2025-06-20 23:11] VITALS: TEMP 98.1
[2025-06-21] MEDS: ONDANSETRON 4MG/2ML VIAL IV ONE (00:15)
[2025-06-21 00:30] LABS: KETONE, URINE AUTO RFX NEGATIVE (NEGATIVE); LEUKOCYTE ESTERASE UR AUTO RFX NEGATIVE (NEGATIVE); MUCUS, URINE RFX SMALL (NEGATIVE); NITRITE, URINE AUTO RFX NEGATIVE (NEGATIVE); RBC, URINE AUTO RFX 4 /HPF (0-3); SQUAM EPITHELIAL CELL UR AURFX 17 /HPF (0-6); WBC, URINE AUTO RFX 9 /HPF (0-3)
[2025-06-21 00:32] LABS: BASO # 0.1 10^3/uL (0.0-0.2); BASO % 0.8 % (0.0-1.0); EOS # 0.3 10^3/uL (0.0-0.5); EOS % 3.0 % (0.0-3.0); LYMPH # 3.0 10^3/uL (1.5-5.0); LYMPH % 33.3 % (24.0-44.0); MONO # 0.7 10^3/uL (0.0-0.8); MONO % 8.2 % (2.0-8.0); NEUTROPHILS # 4.9 10^3/uL (1.5-8.5); NEUTROPHILS % 54.6 % (36.0-66.0); PLATELET COUNT, AUTOMATED 248 10^3/uL (150-450)
[2025-06-21 00:39] LABS: ALT/SGPT 31 U/L (7.0-40); AST/SGOT 41 U/L (<34); CALCIUM LEVEL 8.4 MG/DL (8.5-10.1); CARBON DIOXIDE LEVEL 22 MMOL/L (20-31); CHLORIDE LEVEL 106 MMOL/L (98-107); CREATININE FOR GFR 0.97 MG/DL (0.70-1.30); GLOMERULAR FILTRATION RATE > 90.0 (>60); POTASSIUM SERUM 4.3 MMOL/L (3.5-5.1); SODIUM LEVEL 139 MMOL/L (136-145)
[2025-06-21] MEDS ORDERED: ISOVUE-370 76% 100 ML VIAL As Ordered ONE (01:22)
[2025-06-21 04:30] VITALS: BP 131/72
[2025-06-21 04:45] VITALS: O2SAT 96
== END 2025-06-21 04:57 | disposition home or self-care (01) ==
LOC: EDSEX → M ED 23:03
DX: R10.9 Unspecified abdominal pain (principal); Z04.3 Encounter for examination and observation following other accident; V03.10XA Pedestrian on foot injured in collision with car, pick-up truck or van in traffic accident, initial encounter; Y92.410 Unspecified street and highway as the place of occurrence of the external cause; Y93.89 Activity, other specified; Y99.9 Unspecified external cause status; E11.9 Type 2 diabetes mellitus without complications; J45.909 Unspecified asthma, uncomplicated; K21.9 Gastro-esophageal reflux disease without esophagitis; F31.9 Bipolar disorder, unspecified; F60.9 Personality disorder, unspecified; F42.9 Obsessive-compulsive disorder, unspecified; F17.200 Nicotine dependence, unspecified, uncomplicated; F64.0 Transsexualism; Z79.890 Hormone replacement therapy; Z79.899 Other long term (current) drug therapy; Z88.6 Allergy status to analgesic agent; Z91.030 Bee allergy status
CPT/HCPCS: 70450; 71260; 72125; 74177; 80048; 80076; 81001; 83690; 85025; 96374; 96375; 99284; J0134; J1885; J2405; Q9967

== ENCOUNTER 2025-06-23 22:27 | Emergency (ER) | payer OTHER ==
[~2025-06-23] VITALS: Ht 160 cm; Wt 99.2 kg
[2025-06-24] MEDS ORDERED: ONDA-282 PO (07:13)
[2025-06-24] MEDS ORDERED: CELE100C PO (07:13)
[2025-06-24] MEDS: NAPROXEN 250 MG TAB PO ONE (07:15)
[2025-06-24 07:24] VITALS: BP 153/90; TEMP 97.9; O2SAT 97
== END 2025-06-24 07:40 | disposition home or self-care (01) ==
LOC: EDSEX 22:27 → M ED 22:27
DX: S30.11XA Contusion of abdominal wall, initial encounter (principal); V03.10XA Pedestrian on foot injured in collision with car, pick-up truck or van in traffic accident, initial encounter; Y92.9 Unspecified place or not applicable; Y93.9 Activity, unspecified; Y99.9 Unspecified external cause status; E11.9 Type 2 diabetes mellitus without complications; K21.9 Gastro-esophageal reflux disease without esophagitis; J45.909 Unspecified asthma, uncomplicated; F60.9 Personality disorder, unspecified; F43.10 Post-traumatic stress disorder, unspecified; F31.9 Bipolar disorder, unspecified; F42.9 Obsessive-compulsive disorder, unspecified; F90.9 Attention-deficit hyperactivity disorder, unspecified type; Z79.899 Other long term (current) drug therapy; Z88.6 Allergy status to analgesic agent; Z91.030 Bee allergy status